=== PATIENT | female | born 1935 | race African-American/Black ===

== ENCOUNTER 2020-04-07 14:39 | Emergency (ER) | payer MEDICARE, MEDICAID ==
[2020-04-07 15:03] VITALS: BP 138/79
--- NOTE | 2020-04-10 06:07 | ER Document Report ---
Entered by BONNIE AVITIA SCRIBE 04/07/20 1604 Acting as scribe for:SERGO LAURA MD ED General - General Chief Complaint: Displaced G-tube Stated Complaint: PEG TUBE MALFUNCTION Time Seen by Provider: 04/07/20 16:00 Primary Care Provider: LORRAINE CORREA MD [Primary Care Provider] - Follow up as needed Information source: Patient Notes: This 84 year old female patient presents to the emergency department from her long-term today with complaints of a clogged g-tube per EMS. She is non- verbal and demented at baseline and unable to provide any history. - Related Data Allergies/Adverse Reactions: No Known Allergies Allergy (Verified 04/07/20 14:55) Past Medical History - General Information source: Emergency Med Personnel, [facility] Records, Outside Facility Records Cannot obtain history due to: Dementia - Social History Smoking Status: Never Smoker Cigarette use (# per day): No Lives with: [facility] Family History: Reviewed & Not Pertinent - Past Medical History Cardiac Medical History: Reports: Hx Hypercholesterolemia, Hx Hypertension Neurological Medical History: Reports: Hx Seizures GI Medical History: Reports: Hx Ulcer Musculoskeletal Medical History: Reports Hx Arthritis - osteo Psychiatric Medical History: Reports: Hx Bipolar Disorder, Hx Dementia, Hx Depression Past Surgical History: Reports: Hx Abdominal Surgery - G-tube - Immunizations Hx Diphtheria, Pertussis, Tetanus Vaccination: Yes Hx Pneumococcal Vaccination: 07/14/00 Review of Systems - Review of Systems -: Yes ROS unobtainable due to patient's medical condition - demented Gastrointestinal: See HPI, Other - G-tube clogged Physical Exam - Vital signs Vitals: Temp 98.7 F 04/07/20 14:53 - Notes Notes: Physical Exam: General: Sleeping, non-verbal and demented at baseline. HEENT: Normocephalic. Atraumatic. PERRLA. Extraocular movements intact. Oropharynx clear. Neck: Supple. Respiratory: No respiratory distress. Abdominal: Gastrostomy tube in place. No distension. Extremities: Holds upper extremities crossed across her chest and resists movement, RLE is extended, left hip and knee are held in flexion Neurological: Non-verbal, demented at baseline. Skin: Warm. Dry. Normal color. Course - Vital Signs Vital signs: Temp Pulse Resp BP Pulse Ox 98.7 F 91 18 138/79 H 96 04/07/20 15:01 04/07/20 15:01 04/07/20 15:01 04/07/20 15:01 04/07/20 15:01 Discharge - Discharge Clinical Impression: Gastrostomy tube obstruction Condition: Stable Disposition: HOME-SNF (ED ONLY) Additional Instructions: The feeding tube obstruction was cleared by flushing it with Pepsi-Cola. Please flush the feeding tube after every feeding. Occasionally put some Pepsi or Coca-Cola down the tube to keep it clean. RETURN TO THE EMERGENCY ROOM IF ANY NEW OR WORSENING SYMPTOMS. Referrals: LORRAINE CORREA MD [Primary Care Provider] - Follow up as needed I personally performed the services described in the documentation, reviewed and edited the documentation which was dictated to the scribe in my presence, and it accurately records my words and actions.
== END 2020-04-07 16:42 ==
LOC: ER 14:39
DX: K94.23 Gastrostomy malfunction (principal); Y83.2 Surgical operation with anastomosis, bypass or graft as the cause of abnormal reaction of the patient, or of later complication, without mention of misadventure at the time of the procedure; Y73.8 Miscellaneous gastroenterology and urology devices associated with adverse incidents, not elsewhere classified; F03.90 Unspecified dementia, unspecified severity, without behavioral disturbance, psychotic disturbance, mood disturbance, and anxiety; E78.00 Pure hypercholesterolemia, unspecified; I10 Essential (primary) hypertension
CPT/HCPCS: 99282

== ENCOUNTER 2020-04-21 01:09 | Emergency (ER) | payer MEDICARE, MEDICAID ==
--- NOTE | 2020-04-21 01:44 | ER Document Report ---
ED General - General Chief Complaint: Other Stated Complaint: FEEDING TUBE ISSUE Time Seen by Provider: 04/21/20 01:16 Primary Care Provider: LORRAINE CORREA MD [Primary Care Provider] - Follow up as needed Mode of Arrival: Medic Information source: Emergency Med Personnel Cannot obtain history due to: Dementia Notes: NOTES from prior last visit; Chief Complaint: Displaced G-tube Stated Complaint: PEG TUBE MALFUNCTION Time Seen by Provider:04/07/2020 Primary Care Provider: LORRAINE CORREA MD [Primary Care Provider] - Follow up as needed Information source: Patient Notes: This 84 year old female patient [facility] the emergency department [facility] with complaints of a clogged g-tube per EMS. She is non- verbal and demented at baseline and unable to provide any history. - Related Data Allergies/Adverse Reactions: No Known Allergies Allergy Past Medical History - General Information source: Emergency Med Personnel, [facility] Records, Outside Facility Records Cannot obtain history due to: Dementia - Social History Smoking Status: Never Smoker Cigarette use (# per day): No Lives with: Group Home Family History: Reviewed & Not Pertinent - Past Medical History Cardiac Medical History: Reports: Hx Hypercholesterolemia, Hx Hypertension Neurological Medical History: Reports: Hx Seizures GI Medical History: Reports: Hx Ulcer Musculoskeletal Medical History: Reports Hx Arthritis - osteo Psychiatric Medical History: Reports: Hx Bipolar Disorder, Hx Dementia, Hx Depression Past Surgical History: Reports: Hx Abdominal Surgery - G-tube - Immunizations Hx Diphtheria, Pertussis, Tetanus Vaccination: Yes Hx Pneumococcal Vaccination: 07/14/00 Review of Systems - Review of Systems -: Yes ROS unobtainable due to patient's medical condition - demented Gastrointestinal: See HPI, Other - G-tube clogged Physical Exam - Vital signs Vitals: Temp 98.7 F 04/07/20 14:53 - Notes Notes: Physical Exam: General: Sleeping, non-verbal and demented at baseline. HEENT: Normocephalic. Atraumatic. PERRLA. Extraocular movements intact. Oropharynx clear. Neck: Supple. Respiratory: No respiratory distress. Abdominal: Gastrostomy tube in place. No distension. Extremities: Holds upper extremities crossed across her chest and resists movement, RLE is extended, left hip and knee are held in flexion Neurological: Non-verbal, demented at baseline. Skin: Warm. Dry. Normal color. Course - Vital Signs Vital signs: Temp Pulse Resp BP Pulse Ox 98.7 F 91 18 138/79 H 96 04/07/20 15:01 04/07/20 15:01 04/07/20 15:01 04/07/20 15:01 04/07/20 15:01 Discharge - Discharge Clinical Impression: Gastrostomy tube obstruction Condition: Stable Disposition: HOME-SNF (ED ONLY) Additional Instructions: The feeding tube obstruction was cleared by flushing it with Pepsi-Cola. Please flush the feeding tube after every feeding. Occasionally put some Pepsi or Coca-Cola down the tube to keep it clean. RETURN TO THE EMERGENCY ROOM IF ANY NEW OR WORSENING SYMPTOMS. Referrals: LORRAINE CORREA MD [Primary Care Provider] - Follow up as needed I personally performed the services described in the documentation, reviewed and edited the documentation which was dictated to the scribe in my presence, and it accurately records my words and actions. MY NOTES FROM 0130 on 04/21/2020 Patient tolerated procedure well. 84-year-old black female arrives with EMS workers Natalie from [facility] after G-tube became clogged up and nonfunctional. 84-year-old nonverbal demented patient [facility] that was sent here via EMS emergency services for G-tube displacement or l obstruction. The Beckwith catheter was removed from the G-tube site and a 18-gauge Slovenian was replaced with a 10 mL bulb filled with saline by myself. This occurred at 0140. TRAVEL OUTSIDE OF THE [place] IN LAST 30 DAYS: No - HPI Onset: This evening Onset/Duration: Sudden, Persistent Quality of pain: No pain Severity: None Associated symptoms: Other - Patient unable to respond because of dementia Exacerbated by: Other - Clogged G-tube Relieved by: Denies Similar symptoms previously: Yes Recently seen / treated by doctor: Yes - Related Data Allergies/Adverse Reactions: No Known Allergies Allergy (Verified 04/07/20 14:55) Past Medical History - General Information source: Emergency Med Personnel Cannot obtain history due to: Dementia - Social History Smoking Status: Unknown if Ever Smoked Cigarette use (# per day): No Chew tobacco use (# tins/day): No Smoking Education Provided: No Frequency of alcohol use: None Drug Abuse: None Lives with: Group Home Family History: Reviewed & Not Pertinent Patient has suicidal ideation: No Patient has homicidal ideation: No - Past Medical History Cardiac Medical History: Reports: Hx Hypercholesterolemia, Hx Hypertension Pulmonary Medical History: Denies: Hx Tuberculosis Neurological Medical History: Reports: Hx Seizures GI Medical History: Reports: Hx Ulcer Musculoskeletal Medical History: Reports Hx Arthritis - osteo Psychiatric Medical History: Reports: Hx Bipolar Disorder, Hx Dementia, Hx Depression Past Surgical History: Reports: Hx Abdominal Surgery - G-tube. Denies: Hx Hysterectomy, Hx Pacemaker - Immunizations Hx Diphtheria, Pertussis, Tetanus Vaccination: Yes Hx Pneumococcal Vaccination: 07/14/00 Review of Systems - Review of Systems -: Yes ROS unobtainable due to patient's medical condition Constitutional: No symptoms reported EENT: No symptoms reported Cardiovascular: No symptoms reported Respiratory: No symptoms reported Gastrointestinal: See HPI, Other - G-tube malfunction Genitourinary: No symptoms reported Female Genitourinary: No symptoms reported Musculoskeletal: No symptoms reported Skin: No symptoms reported Hematologic/Lymphatic: No symptoms reported Neurological/Psychological: No symptoms reported Physical Exam - Vital signs Vitals: Temp 98.0 F 04/21/20 01:48 Interpretation: Normal - General General appearance: Other - Appears to be sleeping but easily blinks eyes upon touching patient - HEENT Head: Normocephalic, Atraumatic Eyes: Normal Extraocular movements intact: Yes Eyelashes: Normal Mucous membranes: Dry Pharynx: Normal Neck: Normal - Respiratory Respiratory status: No respiratory distress Chest status: Nontender Breath sounds: Normal Chest palpation: Normal - Cardiovascular Rhythm: Regular Heart sounds: Normal auscultation Murmur: No - Abdominal Inspection: Normal, Other - Except for G-tube site with mild bleeding after removal of old G-tube/Beckwith catheter and bleeding was stopped with gentle pressure with 4 x 4 prior to replacement by 18 Slovenian Beckwith by myself. Distension: No distension Bowel sounds: Normal Tenderness: Nontender Organomegaly: No organomegaly - Rectal Tenderness: No - Genitourinary External exam: Normal - I was with nursing staff female - Back Back: Normal, Nontender - Extremities General upper extremity: Normal inspection, Nontender, Normal color, Normal ROM, Normal temperature General lower extremity: Normal inspection, Nontender, Normal color, Normal ROM, Normal temperature, Normal weight bearing. No: Cb's sign - Neurological Neuro grossly intact: No Cognition: Inattentive [place] Coma Scale Eye Opening: To Pain [place] Coma Scale Verbal: Confused [place] Coma Scale Motor: Localizes to Pain [place] Coma Scale Total: 11 Motor strength normal: No: LUE, RUE - Contractures in all extremities, LLE, RLE Sensory: Normal - Psychological Associated symptoms: Normal affect, Normal mood - Skin Skin Temperature: Warm Skin Moisture: Dry Skin Color: Normal Course - Vital Signs Vital signs: Temp Pulse Resp BP Pulse Ox 99.0 F 91 16 150/75 H 95 04/21/20 02:27 04/21/20 02:27 04/21/20 02:27 04/21/20 02:27 04/21/20 02:27 - Diagnostic Test Radiology reviewed: Reports reviewed Procedures - Additional Procedures Gastric tube replacement Time performed: 01:47 Notes: 04/21/20 01:47 A 18 Slovenian Beckwith was easily placed in the G-tube site with 10 mL saline feeling bulb after this was placed. Flushing was easily done. Discharge - Discharge Clinical Impression: PEG (percutaneous endoscopic gastrostomy) adjustment/replacement/removal Condition: Good Disposition: HOME, SELF-CARE Additional Instructions: Flush the G-tube after use with 0-calorie Pepsi or cola. Return to ER for true emergencies and not for G-tube replacement at midnight. Contact your physician if this occurs in the future for replacement. Continue with current feeding Referrals: LORRAINE CORREA MD [Primary Care Provider] - Follow up as needed
[2020-04-21 03:35] VITALS: BP 167/89
--- NOTE | 2020-04-25 11:38 | RADIOLOGY REPORT (SQ) ---
EXAM DESCRIPTION: REPLACE/EXCHANGE J-TUBE IMAGES COMPLETED DATE/TIME: 04/21/2020 2:25 am REASON FOR STUDY: new feeding tube COMPARISON: None. TECHNIQUE: 30 cc Omnipaque injected into existing jejunostomy. AP portable supine view of the abdom en. Images saved to PACs. LIMITATIONS: None. FINDINGS: There is contrast within normal appearing jejunum. No evidence of extravasation. IMPRESSION: Patent jejunostomy. TECHNICAL DOCUMENTATION: JOB ID: [id number] 2010 [employer]- All Rights Reserved Reading location - IP/workstation name: [email or web address]
== END 2020-04-21 03:25 | disposition home or self-care (01) ==
LOC: EDBD → ER 01:09
DX: K94.23 Gastrostomy malfunction (principal); F03.90 Unspecified dementia, unspecified severity, without behavioral disturbance, psychotic disturbance, mood disturbance, and anxiety; E78.00 Pure hypercholesterolemia, unspecified; I10 Essential (primary) hypertension
CPT/HCPCS: 49451; 51702; 99285